=== PATIENT | male | born 1935 | race Caucasian/White ===

== ENCOUNTER 2023-09-26 08:53 | Outpatient (OUT) | payer MEDICARE, SELFPAY ==
[2023-09-26 09:54] LABS: Thyroid Stimulating Hormone 1.211 uIU/mL (0.358-3.740)
== END 2023-09-26 08:54 | disposition home or self-care (01) ==
LOC: LAB 08:53
PROVIDERS: PCP Psychiatry & Neurology Neurology; Visit Provider Psychiatry & Neurology Neurology
DX: F03.A0 Unspecified dementia, mild, without behavioral disturbance, psychotic disturbance, mood disturbance, and anxiety (principal)
CPT/HCPCS: 36415; 82607; 83921; 84443